=== PATIENT | female | born 1990 | race Caucasian/White ===

== ENCOUNTER 2017-02-03 09:49 | Emergency (ER) | payer OTHER ==
[~2017-02-03] VITALS: Ht 167.6 cm; Wt 66.0 kg
[~2017-02-03 09:49] MED LIST: FLUT1SPR5 EACH NARE; SUMA100T2 PO
[2017-02-03 10:01] VITALS: BP 113/69; PULSE 75; RESP 16; TEMP 99; O2SAT 100
[2017-02-03] MEDS ORDERED: AZIT250T3 PO (10:13)
[2017-02-03] MEDS ORDERED: AMPICILLIN-SULBACTAM INJ 3 GM VIAL IM ONE (10:30)
--- NOTE | 2017-02-03 10:46 | PD ---
HPI Chief Complaint: Bite or Sting Time Seen by Provider: 10:12 Travel History International Travel<30 days: No Contact w/Intl Traveler<30days: No Traveled to known affect area: No History of Present Illness HPI Is a 26-year-old right handed woman who presents to the emergency department complaining of right index finger pain and swelling. She reports that she smashed on a board and in the next day was bitten by a Chihuahua at the [facility] where she works. This was 2 or 3 days ago. She's had worsening symptoms of pain and swelling since then. She started taking some azithromycin that she had left over at home but it's worsening nonetheless. She has pain with flexion of the finger and his had worsening symptoms. Dog was up-to-date on the rabies shots. She is up-to-date on her tetanus. History Past Medical History Tetanus Vaccination: < 5 Years LMP: 1 WEEK AGO Social History Alcohol Use: No (DENIES) Tobacco Use: No (NEVER) Allergies-Medications (Allergen,Severity, Reaction): Coded Allergies: No Known Allergies (Verified , 02/03/17) Reported Meds & Prescriptions Reported Meds & Active Scripts Active Sumatriptan (Sumatriptan Succinate) 100 Mg Tab 100 Mg PO ONCE PRN If a satisfactory response has not been obtained at 2 hours, a second dose may be administered Reported Azithromycin 250 Mg Tab 250 Mg PO DIRECTED Take 2 tabs (500 mg) on day 1 then 1 tab daily x 4 days. Review of Systems Except as stated in HPI: all other systems reviewed are Neg Physical Exam Narrative GENERAL: 26-year-old woman, no acute distress. SKIN: Warm and dry. CARDIOVASCULAR: Warm and well perfused. RESPIRATORY: Normal rate and effort. MUSCULOSKELETAL: Focused exam of the right upper extremity reveals a little bit of swelling about the proximal knuckle on the index finger. There is bite valentino above and below the PIP joint. There is some erythema and swelling around that same area. Erythema tracks a little bit proximally toward the hand. She is able to range it but has pain when she extends it fully. There is not convincing evidence for flexor tenosynovitis. NEUROLOGICAL: Awake and alert. No gross deficits. Data Data Last Documented VS Vital Signs Date Time Temp Pulse Resp B/P (MAP) Pulse Ox O2 Delivery O2 Flow Rate FiO2 02/03/17 10:01 99.0 75 16 113/69 (84) 100 Room Air Orders Orders Hand, Complete ([id number]) (02/03/17 ) Ampicillin-Sulbactam Inj (Unasyn Inj) (02/03/17 10:30) [facility] Medical Decision Making Medical Screen Exam Complete: Yes Emergency Medical Condition: Yes Interpretation(s) X-ray negative for fracture Differential Diagnosis Bite wound, cellulitis, tenosynovitis, other Narrative Course Medical decision making INITIAL: Is a 26-year-old woman who presents to the emergency department complaining of a bite wound to the right finger following blunt trauma to the right index finger. We'll check x-ray, labs, x-ray, reassess. Diagnosis Primary Impression: Cellulitis of right index finger Patient Instructions: General Instructions Additional Instructions: Take Aleve or Motrin as needed for pain. Take antibiotics as prescribed. Return to the emergency department for any worsening pain redness swelling fevers or any other new or worsening symptoms. Med/Other Pt SpecificInfo: Prescription(s) given Scripts Amoxicillin-Clavulanate (Augmentin) 875-125 Mg Tab 1 TAB PO BID for Infection for 7 Days, #14 TAB 0 Refills Prov: Jerry Delacruz MD 02/03/17 Disposition: 01 DISCHARGE HOME Condition: Stable Jerry Delacruz MD Feb 03, 2017 10:46
--- NOTE | 2017-02-03 10:59 | RADRPT ---
EXAM DATE/TIME: 02/03/2017 10:41 [place] COMPARISON: No previous studies available for comparison. INDICATIONS : Dog bite to distal 2nd digit. Swelling. MEDICAL HISTORY : None. SURGICAL HISTORY : None. ENCOUNTER: Initial ACUITY: 4 - 6 days PAIN SCORE: 6/10 LOCATION: Right upper extremity FINDINGS: Three view examination of the right hand demonstrates no dislocation, or fracture. Mild soft tissue swelling of the right second finger. The carpal bones appear intact. The interphalangeal and metacar pophalangeal joints are intact. Bony mineralization is normal. CONCLUSION: Mild soft tissue swelling of the right second finger. Otherwise, Normal examination for a patient of this age. Raul Batista MD on February 03, 2017 at 10:57 Board Certified Radiologist. This report was verified electronically.
[2017-02-03 11:05] VITALS: BP 110/60; PULSE 78; RESP 17; O2SAT 98
[2017-02-03] MEDS ORDERED: AUGM875T3 PO ×2 (11:12→11:38)
[2017-02-03 11:35] VITALS: BP 106/67
== END 2017-02-03 11:40 | disposition home or self-care (01) ==
LOC: PHED 09:49
DX: L03.011 Cellulitis of right finger (principal); S61.250A Open bite of right index finger without damage to nail, initial encounter; W54.0XXA Bitten by dog, initial encounter; Y99.0 Civilian activity done for income or pay; Y93.K9 Activity, other involving animal care; W22.8XXA Striking against or struck by other objects, initial encounter
CPT/HCPCS: 73130; 96372; 99284; J0295